=== PATIENT | female | born 1995 | race Caucasian/White ===

== ENCOUNTER 2016-10-13 14:42 | Emergency (ER) | payer OTHER ==
[2016-10-13 16:25] VITALS: BP 143/89
[2016-10-15 15:13] LABS: RAPID PLASMA REAGIN Non Reactive (Non Reactive)
== END 2016-10-13 16:25 | disposition home or self-care (01) ==
LOC: ED 14:42
PROVIDERS: Emergency Medicine
DX: N89.8 Other specified noninflammatory disorders of vagina (principal); Z88.1 Allergy status to other antibiotic agents; F41.9 Anxiety disorder, unspecified
CPT/HCPCS: 87491; 87591

== ENCOUNTER 2020-08-14 11:11 | Emergency (ER) | payer SELFPAY ==
[~2020-08-14] VITALS: Ht 152.4 cm; Wt 77.1 kg
[2020-08-14 11:21] VITALS: Ht 152.4 cm; Wt 77.1 kg
[2020-08-14] MEDS ORDERED: GOOD SENSE NASA30 MG PO (11:38)
[2020-08-14] MEDS ORDERED: [UNRECOGNIZED DRUG - OTHER] AU (11:38)
[2020-08-14] MEDS ORDERED: CLEOCIN HCL300 MG PO (11:38)
[2020-08-14 12:00] VITALS: BP 111/78
== END 2020-08-14 12:00 | disposition home or self-care (01) ==
LOC: ED 11:11
DX: H65.92 Unspecified nonsuppurative otitis media, left ear (principal); Z88.0 Allergy status to penicillin